=== PATIENT | female | born 1975 ===

== ENCOUNTER 2021-03-26 08:38 | Outpatient (CLI) | payer OTHER ==
[~2021-03-26 08:38] MED LIST: CYCLOBENZAPRINE10 MG PO
== END 2021-03-26 08:47 | disposition home or self-care (01) ==
LOC: RX STUDY 08:38
DX: R13.19 Other dysphagia (principal); K22.89 Other specified disease of esophagus

== ENCOUNTER 2023-09-02 07:03 | Outpatient (CLI) | payer OTHER | END 2023-09-02 07:08 | disposition home or self-care (01) | LOC: RX STUDY 07:03 | DX: R13.10 Dysphagia, unspecified (principal) ==